=== PATIENT | male | born 1945 | race Caucasian/White ===

== ENCOUNTER 2016-04-29 14:26 | Observation (INO) | payer MEDICARE, OTHER ==
--- NOTE | 2016-04-29 14:43 | ED ---
General Adult HPI - General Stated complaint: Defib went off Time Seen by Provider: 04/29/16 14:34 Source: patient, EMS, RN notes reviewed, old records reviewed - History of Present Illness Initial comments: Chief complaint and history of present illness is a 70-year-old male who has an indwelling cardiac defibrillator. The patient reports it started having jaw pain which signals to him he is having a heart attack and his defibrillator may go off. He reports it's gone off half a dozen times over the years since he's had the AICD. He reports it did go off he felt quite a kick. And the jaw pain stops. Pain did not radiate across the chest or down the arms. Patient was brought from the clinic to the emergency room via EMS. - Related Data Home Medications Medication Instructions Recorded Confirmed Furosemide [Lasix] 40 mg PO DAILY 08/13/13 04/29/16 Mexiletine HCl 250 mg PO TID 08/13/13 04/29/16 Potassium Chloride [Klor-Con 20] 20 meq PO DAILY 08/13/13 04/29/16 clonazePAM [KlonoPIN] 0.5 mg PO BID 08/13/13 04/29/16 traZODone HCL 50 mg PO HS 08/13/13 04/29/16 Famotidine [Pepcid] 20 mg PO DAILY 08/14/13 04/29/16 Venlafaxine HCl [Effexor XR] 75 mg PO DAILY 08/14/13 04/29/16 ALPRAZolam [Xanax] 0.25 mg PO BID PRN 01/22/15 04/29/16 Aspirin EC [Ecotrin Low Dose] 81 mg PO DAILY 01/22/15 04/29/16 Clopidogrel [Plavix] 75 mg PO DAILY 01/22/15 04/29/16 Docusate [Colace] 100 mg PO DAILY PRN 01/22/15 04/29/16 [place]-3 Fatty Acids/Fish Oil [Fish 2 cap PO BID 01/22/15 04/29/16 Oil 1,000 mg Softgel] Vitamin B Complex 1 tab PO DAILY 01/22/15 04/29/16 Androgel 20.25 Mg/1.25gm 4 pump TOPICAL DAILY 01/23/15 04/29/16 Calcium Carbonate [Calcium] 600 mg PO DAILY 01/23/15 04/29/16 Fluvastatin Sodium 20 mg PO HS 01/23/15 04/29/16 Metoprolol Tartrate [Lopressor] 50 mg PO TID 01/23/15 04/29/16 Amiodarone [Cordarone] 200 mg PO DAILY 05/03/15 04/29/16 Nitroglycerin Sl Tabs [Nitrostat] 0.4 mg SUBLINGUAL Q5M PRN 04/29/16 04/29/16 Allergies Allergy/AdvReac Type Severity Reaction Status Date / Time chlorhexidine gluconate Allergy Rash/Hives Verified 04/29/16 15:04 [From Hibiclens] codeine Allergy Rash/Hives Verified 04/29/16 15:04 ciprofloxacin [From Cipro] AdvReac Nausea & Verified 04/29/16 15:04 Vomiting chloraprep Allergy Rash/Hives Uncoded 01/22/15 17:19 Review of Systems ROS Statement: Those systems with pertinent positive or pertinent negative responses have been documented in the HPI. Review of systems. At this time patient's denying any headache or visual acuity changes no jaw pain no chest pain or shortness of breath this time though he is on O2 2 L day and day out. No chest pain or shortness of breath this time no GI/ problems no complaints of any neuro deficits. All systems were otherwise reviewed. Past medical problems significant for patient different later, O2 dependent. 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 COPD. The patient's surgeries include patient's defibrillator , C-spine, lumbar spine, bilateral knee replacements, 3 or 4 hernia repairs. And 5 stents he thinks on 5 different occasions. The patient's family history no cancer. Patient has ALLERGIES to codeine in chlorhexedine. Quit smoking 3 years ago quit alcohol 30 years ago ROS Other: All systems not noted in ROS Statement are negative. Past Medical History Past Medical History: Coronary Artery Disease (CAD), Chest Pain / Angina, COPD, Deep Vein Thrombosis (DVT), Hypertension, Osteoarthritis (OA), Pneumonia, Supraventricular Tachycardia (SVT) Additional Past Medical History / Comment(s): CT. stents x 4, home oxygen as needed History of Any Multi-Drug Resistant Organisms: MRSA Date of last positivie culture/infection: 2009 MDRO Source:: pain pump in spine got infected Past Surgical History: Appendectomy, Back Surgery, Heart Catheterization With Stent, Hernia Repair Additional Past Surgical History / Comment(s): stent-coronary, pacemaker- defibrillator 1998, pain pump with dilaudid, morphine and biviocaine, knee right Past Anesthesia/Blood Transfusion Reactions: No Reported Reaction Date of Last Stent Placement:: 2011 Past Psychological History: Anxiety, Depression Smoking Status: Former smoker Past Alcohol Use History: None Reported Past Drug Use History: None Reported - Past Family History Father Family Medical History: Unable to Obtain Additional Family Medical History / Comment(s): dies due to mva Mother Family Medical History: CVA/TIA, Myocardial Infarction (CT) Additional Family Medical History / Comment(s): at age 59 General Exam - General Exam Comments Initial Comments: General: The patient is awake and alert, in no distress, and does not appear acutely ill. Here because his ICD went off approximately half hour ago. This was preceded by jaw pain. Vital signs show temperature 97.8 pulse 70, respiratory rate 24 pulse ox 94% on 2 L blood pressure 123/77 Eye: Pupils are equal, round and reactive to light, extra-ocular movements are intact ; there is normal conjunctiva bilaterally. No signs of icterus. Ears, nose, mouth and throat: There are moist mucous membranes and no oral lesions. Neck: The neck is supple, there is no tenderness , evidence of previous neck surgery Cardiovascular: There is a regular rate and rhythm. No murmur, rub or gallop is appreciated. Respiratory: Lungs are clear to auscultation, respirations are non-labored, breath sounds are equal. No wheezes, stridor, rales, or rhonchi. History COPD on oxygen 24/ 7 Gastrointestinal: Soft, non-distended, non-tender abdomen without masses or organomegaly noted. There is no rebound or guarding present. No CVA tenderness. Bowel sounds are unremarkable. Patient is a pain pump right lower quadrant. Chronic back pain Back: There is no tenderness to palpation in the midline. There is no obvious deformity. No rashes noted. Chronic back pain Musculoskeletal: Normal ROM, no tenderness, There is no pedal edema. There is no calf tenderness or swelling. Sensation intact. Pulses equal bilaterally 2+. Neurological: No neuro deficits. Denies any previous strokes. Slight droopiness to the left side of his mouth. No difficulty thinking or explaining or talking. Skin: Skin is warm and dry and no rashes or lesions are noted. Psychiatric: No complaint of any depression or anxiety. Course Vital Signs 04/29/16 04/29/16 04/29/16 14:40 15:53 16:25 Temperature 97.8 F 97.4 F L Pulse Rate 70 59 L 56 L Respiratory 18 18 16 Rate Blood Pressure 123/77 100/58 95/53 O2 Sat by Pulse 96 94 L 96 Oximetry EKG Findings - EKG Comments: EKG Findings:: EKG was done and reviewed at 1437 showing sinus rhythm with first-degree AV block. No acute ST elevation no ectopy age undetermined inferior injury. Rate 71 [place] interval was 216 QRS [address] Ford Medical Decision Making - Medical Decision Making Patient's case was discussed with Dr. Villarreal, on-call motion picture projectionist. He recommends increasing amiodarone 200 mg twice a day. Labs show white count 7.2 hemoglobin 11 hematocrit 35, potassium 4.6, BUN 18 creatinine 1.1 GFR greater than 60. Glucose 91. CK 38 and MB fraction 2, troponin less than 0.012. Patient was seen in emergency room by Dr. Villarreal, on-call motion picture projectionist. Patient will be admitted to the service of Dr. Puga - Lab Data Result diagrams: 04/29/16 14:55 04/29/16 14:55 Lab Results 04/29/16 04/29/16 04/29/16 Range/Units 14:55 14:55 14:55 WBC 7.2 (3.8-10.6) k/uL RBC 3.76 L (4.30-5.90) m/uL Hgb 11.4 L (13.0-17.5) gm/dL Hct 35.6 L (39.0-53.0) % MCV 94.6 (80.0-100.0) fL MCH 30.3 (25.0-35.0) pg MCHC 32.0 (31.0-37.0) g/dL RDW 13.3 (11.5-15.5) % Plt Count 276 (150-450) k/uL Neutrophils % 78 % Lymphocytes % 11 % Monocytes % 5 % Eosinophils % 4 % Basophils % 0 % Neutrophils # 5.6 (1.3-7.7) k/uL Lymphocytes # 0.8 L (1.0-4.8) k/uL Monocytes # 0.3 (0-1.0) k/uL Eosinophils # 0.3 (0-0.7) k/uL Basophils # 0.0 (0-0.2) k/uL PT (9.0-12.0) sec INR (<1.1) APTT (22.0-30.0) sec Sodium 144 (137-145) mmol/L Potassium 4.6 (3.5-5.1) mmol/L Chloride 104 (98-107) mmol/L Carbon Dioxide 30 (22-30) mmol/L Anion Gap 10 mmol/L BUN 18 (9-20) mg/dL Creatinine 1.10 (0.66-1.25) mg/dL Est GFR (MDRD) Af Amer >60 (>60 ml/min/1.73 sqM) Est GFR (MDRD) Non-Af >60 (>60 ml/min/1.73 sqM) Glucose 91 (74-99) mg/dL Calcium 9.0 (8.4-10.2) mg/dL Magnesium 1.8 (1.6-2.3) mg/dL Total Bilirubin 0.3 (0.2-1.3) mg/dL AST 19 (17-59) U/L ALT 23 (21-72) U/L Alkaline Phosphatase 62 (38-126) U/L Total Creatine Kinase 38 L (55-170) U/L CK-MB (CK-2) 1.0 (0.0-2.4) ng/mL CK-MB (CK-2) Rel Index 2.6 Troponin I <0.012 (0.000-0.034) ng/mL Total Protein 6.7 (6.3-8.2) g/dL Albumin 3.6 (3.5-5.0) g/dL 04/29/16 Range/Units 14:55 WBC (3.8-10.6) k/uL RBC (4.30-5.90) m/uL Hgb (13.0-17.5) gm/dL Hct (39.0-53.0) % MCV (80.0-100.0) fL MCH (25.0-35.0) pg MCHC (31.0-37.0) g/dL RDW (11.5-15.5) % Plt Count (150-450) k/uL Neutrophils % % Lymphocytes % % Monocytes % % Eosinophils % % Basophils % % Neutrophils # (1.3-7.7) k/uL Lymphocytes # (1.0-4.8) k/uL Monocytes # (0-1.0) k/uL Eosinophils # (0-0.7) k/uL Basophils # (0-0.2) k/uL PT 10.8 (9.0-12.0) sec INR 1.1 (<1.1) APTT 23.5 (22.0-30.0) sec Sodium (137-145) mmol/L Potassium (3.5-5.1) mmol/L Chloride (98-107) mmol/L Carbon Dioxide (22-30) mmol/L Anion Gap mmol/L BUN (9-20) mg/dL Creatinine (0.66-1.25) mg/dL Est GFR (MDRD) Af Amer (>60 ml/min/1.73 sqM) Est GFR (MDRD) Non-Af (>60 ml/min/1.73 sqM) Glucose (74-99) mg/dL Calcium (8.4-10.2) mg/dL Magnesium (1.6-2.3) mg/dL Total Bilirubin (0.2-1.3) mg/dL AST (17-59) U/L ALT (21-72) U/L Alkaline Phosphatase (38-126) U/L Total Creatine Kinase (55-170) U/L CK-MB (CK-2) (0.0-2.4) ng/mL CK-MB (CK-2) Rel Index Troponin I (0.000-0.034) ng/mL Total Protein (6.3-8.2) g/dL Albumin (3.5-5.0) g/dL Disposition Clinical Impression: ICD (implantable cardioverter-defibrillator) discharge Disposition: ADMITTED IP TO THIS HOSP Condition: Fair
[2016-04-29 15:15] LABS: Basophils % (A) 0 %; CH 29.7; CHCM 31.5; Eosinophils # (A) 0.3 k/uL (0-0.7); Eosinophils % (A) 4 %; HCT 35.6 % (39.0-53.0); HDW 2.27; HGB 11.4 gm/dL (13.0-17.5); Luc # (Auto) 0.15; Luc % (Auto) 2; Lymphocytes # (A) 0.8 k/uL (1.0-4.8); Lymphocytes % (A) 11 %; MCH 30.3 pg (25.0-35.0); MCV 94.6 fL (80.0-100.0); Mean Platelet Volume 7.1; Monocytes # (A) 0.3 k/uL (0-1.0); Monocytes % (A) 5 %; Neutrophils # (A) 5.6 k/uL (1.3-7.7); Neutrophils % (A) 78 %; RBC 3.76 m/uL (4.30-5.90); RDW 13.3 % (11.5-15.5); WBC 7.2 k/uL (3.8-10.6); WBC (Perox) 7.72
[2016-04-29 15:18] LABS: ALT 23 U/L (21-72); AST 19 U/L (17-59); Alkaline Phosphatase 62 U/L (38-126); Anion Gap 10 mmol/L; Blood Urea Nitrogen 18 mg/dL (9-20); Carbon Dioxide 30 mmol/L (22-30); Chloride 104 mmol/L (98-107); Glucose 91 mg/dL (74-99); Magnesium 1.8 mg/dL (1.6-2.3); Non-African American GFR(MDRD) >60 (>60 ml/min/1.73 sqM); Potassium 4.6 mmol/L (3.5-5.1); Sodium 144 mmol/L (137-145); Total Bilirubin 0.3 mg/dL (0.2-1.3); Total Protein 6.7 g/dL (6.3-8.2)
[2016-04-29 15:28] LABS: Creatine Kinase 38 U/L (55-170)
[2016-04-29] MEDS ORDERED: AMIODARONE 200 MG TAB PO STA (15:30)
[2016-04-29 15:37] LABS: INR 1.1 (<1.1); Partial Thromboplastin Time 23.5 sec (22.0-30.0); Prothrombin Time 10.8 sec (9.0-12.0)
[2016-04-29 15:41] LABS: Troponin I <0.012 ng/mL (0.000-0.034)
--- NOTE | 2016-04-29 15:43 | XR ---
EXAMINATION TYPE: XR chest 2V DATE OF EXAM: 04/29/2016 3:35 PM COMPARISON: 05/03/2015 TECHNIQUE: PA and lateral views submitted. HISTORY: Chest pain FINDINGS: Cardiac device seen. The heart is enlarged. Hyperinflation suggests COPD. No pneumothorax. Arthropathy of the shoulders and evidence of suggestive trauma involving the left clavicle. Postsurgi yobany change overlying the cervical spine. Interstitial prominence likely related to interstitial pulmo nary fibrosis. Degenerative change of the spine. IMPRESSION: 1. Correlate for pulmonary fibrosis mild superimposed pneumonitis or congestion in the differential.
[2016-04-29] MEDS ORDERED: MEXILETINE 200 MG CAP PO STA (16:03)
--- NOTE | 2016-04-29 16:50 | CONS ---
DATE OF CONSULTATION: This patient is a 70-year-old gentleman who presented to [facility] Emergency Room having had an episode of AICD discharge in his primary care physician's office. He has known ventricular tachycardia, on amiodarone and mexiletine, and had a shock at Dr. Lau's office. He denies chest pain, difficulty in breathing, palpitations, dizziness or syncope. AICD had been evaluated. Patient has had 13 episodes of ventricular tachycardia this afternoon, and almost all the episodes were treated with antitachycardia pacing except one, for which he received a shock. At the time of my evaluation, patient appears comfortable at rest and is in a stable rhythm. Since coming to the emergency room he has not had any further episodes of ventricular tachycardia. Patient states that he has had multiple prior myocardial infarctions and underwent angioplasties, has ischemic cardiomyopathy with significant LV dysfunction. He follows with a reel film inspector at [facility]; I do not have any of his old records with me. Past medical history is significant for: 1. Ischemic cardiomyopathy. 2. Ventricular tachycardia, status post AICD. ALLERGIES: CHARTED. FAMILY HISTORY: Negative for premature coronary artery disease. SOCIAL HISTORY: Negative for smoking, EtOH abuse or drug abuse. REVIEW OF SYSTEMS: HEENT: Unremarkable. CARDIAC: As described above. RESPIRATORY: As described above. GI: Negative. GENITOURINARY: Negative. ALLERGY/IMMUNOLOGY: Negative. MUSCULOSKELETAL: Negative. DERMATOLOGY: Negative. CONSTITUTIONAL: Negative. Rest of the system review is not relevant. Patient is currently: 1. Crestor. 2. Klonopin. 3. Effexor. 4. ( ) 5. Lopressor 50 t.i.d. 6. Mexiletine 250 t.i.d. 7. Lasix 40 daily. 8. Pepcid. 9. Plavix. 10. Cordarone 200 mg daily. 11. Xanax. On exam, comfortable at rest. Vital signs are stable. There is no jugular venous distention. Chest is clear to auscultation and percussion. Heart exam shows first and second heart sounds. No gallop. ABDOMEN: Soft. Examination of extremities did not reveal edema. Peripheral pulses are felt. Labs have been reviewed. Potassium is normal. Magnesium is normal. ASSESSMENT: 1. Ventricular tachycardia, status post defibrillation. 2. Ischemic cardiomyopathy, status post automatic implantable cardioverter defibrillator. 3. Coronary artery disease, status post multi-vessel angioplasty. PLAN: Will admit the patient, run cardiac enzymes to rule out myocardial infarction, increase the dose of amiodarone to 200 b.i.d., continue the mexiletine. Patient's tells me that patient recently had an abdominal surgery and missed his mexiletine doses for a while. I am not quite sure if this is the reason he had the VT episodes. Patient does not want to have any procedures done here at this hospital and would wish to follow with his own reel film inspector. I will see how he is tomorrow. I might ask an electronic operator to see the patient to see if we can adjust his antiarrhythmic therapy.
[2016-04-29] MEDS ORDERED: NALOXONE 0.4 MG/ML 1 ML VIAL IV PRN (17:28)
[2016-04-29] MEDS ORDERED: ACETAMINOPHEN TAB 325 MG TAB PO PRN (17:28)
[2016-04-29] MEDS ORDERED: ALPRAZolam 0.25 MG TAB PO PRN (17:34)
[2016-04-29] MEDS: SODIUM CHLORIDE 0.9% 1,000 ML IV SCH (18:19)
[2016-04-29] MEDS ORDERED: traZODone HCL 50 MG TAB PO SCH (21:00)
[2016-04-29] MEDS ORDERED: ATORVASTATIN 10 MG TAB PO SCH (21:00)
[2016-04-29] MEDS: clonazePAM 0.5 MG TAB PO SCH (21:59)
[2016-04-29] MEDS: METOPROLOL TARTRATE 50 MG TAB PO SCH (21:59)
[2016-04-29] MEDS ORDERED: MEXILETINE 150 MG CAP PO SCH (22:00)
[2016-04-29 22:12] LABS: Creatine Kinase MB 1.3 ng/mL (0.0-2.4); Troponin I 0.019 ng/mL (0.000-0.034)
[2016-04-30 04:34] LABS: Creatine Kinase MB 1.3 ng/mL (0.0-2.4); Troponin I 0.014 ng/mL (0.000-0.034)
[2016-04-30 06:32] LABS: Creatine Kinase MB 1.1 ng/mL (0.0-2.4); Troponin I 0.013 ng/mL (0.000-0.034)
[2016-04-30] MEDS: METOPROLOL TARTRATE 50 MG TAB PO SCH (08:18)
[2016-04-30] MEDS: SODIUM CHLORIDE 0.9% 1,000 ML IV SCH (08:18)
[2016-04-30] MEDS: clonazePAM 0.5 MG TAB PO SCH (08:23)
[2016-04-30 08:42] VITALS: BP 111/55; PULSE 54; RESP 18; TEMP 97.5
[2016-04-30] MEDS ORDERED: CALCIUM CARBONATE 500 MG CHEWABLE PO SCH (09:00)
[2016-04-30] MEDS ORDERED: POTASSIUM CHLORIDE ER 20 MEQ TAB.ER PO SCH (09:00)
[2016-04-30] MEDS ORDERED: CLOPIDOGREL 75 MG TAB PO SCH (09:00)
[2016-04-30] MEDS ORDERED: AMIODARONE 200 MG TAB PO SCH ×2 (09:00)
[2016-04-30] MEDS ORDERED: ASPIRIN 81 MG CHEW PO SCH (09:00)
[2016-04-30] MEDS ORDERED: FAMOTIDINE 20 MG TAB PO SCH (09:00)
[2016-04-30] MEDS ORDERED: FUROSEMIDE 40 MG TAB PO SCH (09:00)
--- NOTE | 2016-04-30 09:07 | CONS ---
ADDENDUM: DATE OF CONSULTATION: I talked to patient and his about undergoing invasive angiography yesterday in the ER but they did not wish to have anything done here. Would want to pursue that work-up through [facility]. I will check a TSH on him.
[2016-04-30] MEDS ORDERED: VENLAFAXINE HCL ER 75 MG CAP PO SCH (10:30)
[2016-04-30 10:46] VITALS: BMI 25.4
--- NOTE | 2016-04-30 11:03 | HP ---
DATE OF ADMISSION: 04/29/2016 PRESENTING COMPLAINT: AICD firing. HISTORY OF PRESENTING COMPLAINT: This is a pleasant 70-year-old patient of Dr. Gabriel Lau. Chronic stable medical conditions include coronary artery disease, patient has got a chronic pain pump, osteoarthritis, COPD, anxiety, depression, hypertension. The patient had yesterday gone to his family doctor to get his pain pump replaced. Sitting in the waiting room when his AICD went off. Patient is sore following that. There was no dizziness, no lightheadedness, no palpitation. Patient decided to come in for the same and he was brought in for the same. 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 Dr. Dahl. REVIEW OF SYSTEMS: CONSTITUTIONAL: Tired. HEENT: None. RESPIRATORY: Chronic cough and sputum. CARDIOVASCULAR: As above. GASTROINTESTINAL: None. GENITOURINARY: None. MUSCULOSKELETAL: Chronic low back pain. DERMATOLOGICAL: None. HEMATOLOGICAL: None. LYMPHATIC: None. PSYCHIATRY: None. NEUROLOGICAL: None. PAST MEDICAL HISTORY: AICD, coronary artery disease, chronic pain pump, lumbar osteoarthritis, COPD, anxiety, depression, hypertension. PAST SURGICAL HISTORY: Appendectomy, back surgery, cardiac cath with 4 stents, AICD in 1998, pain with Dilaudid, morphine and ( ). SOCIAL HISTORY: . The patient smoked close to 50 years; stopped a few years ago. Alcohol occasionally. FAMILY HISTORY: Noncontributory to the presentation. HOME MEDICATIONS: 1. Nitrostat 0.4 sublingual q.5 p.r.n. 2. Fluvastatin 20 mg q.h.s. 3. Colace 100 mg p.o. daily p.r.n. 4. AndroGel 4 pump topical daily. 5. Trazodone 50 mg p.o. q.h.s. 6. Klonopin 0.5 mg p.o. b.i.d. 7. Vitamin B complex 1 tablet p.o. daily. 8. Effexor XR 75 mg p.o. daily. 9. Klor-Con 20 mEq p.o. daily. 10. Fish oil 2 capsules p.o. b.i.d. 11. Mexiletine 250 mg p.o. t.i.d. 12. Lopressor 50 mg p.o. t.i.d. 13. Lasix 40 mg p.o. daily. 14. Pepcid 20 mg p.o. daily. 15. Plavix 75 mg p.o. daily. 16. Calcium 600 mg p.o. daily. 17. Aspirin 81 p.o. daily. 18. Cordarone 200 mg p.o. daily. 19. Xanax 0.25 p.o. b.i.d. p.r.n. Allergies to CHLORHEXIDINE, CODEINE, CIPRO. ON EXAMINATION: VITAL SIGNS ON PRESENTATION: Temperature 97.8, pulse 70, respiration 18, blood pressure 120/77, pulse ox 96% on 2 L. GENERAL APPEARANCE: Average build, lying in bed, not in distress. EYES: Pupils equal. Conjunctivae normal. HEENT: External appearance of nose and ears normal. Oral cavity normal. NECK: JVD not raised. Mass not palpable. RESPIRATORY: Effort normal. LUNGS: Diminished breath sounds. CARDIOVASCULAR: First and second sounds normal. No edema. ABDOMEN: Soft, nontender. Liver and spleen not palpable. Pain pump noted subcutaneously. LYMPHATIC: No lymph node palpable in the neck or axillae. PSYCHIATRY: Alert and oriented x3. Mood and affect normal. NEUROLOGICAL: Pupils equal. Cranial nerves grossly intact. Power and sensation grossly intact. INVESTIGATIONS: White count 7.2, hemoglobin 11.4. Potassium 4.6. BUN and creatinine are normal. Troponin less than 0.012, 0.019. EKG: Sinus rhythm low voltage. ASSESSMENT: 1. Automatic implantable cardioverter-defibrillator firing x1. 2. Coronary artery disease with prior history of stents. 3. Lumbar spine osteoarthritis. 4. Chronic pain with the pain pump in place. 5. Chronic obstructive pulmonary disease with predominant chronic bronchitis in an ex-smoker. 6. Anxiety, depression, not otherwise specified. 7. Essential hypertension. PLAN: Home medications are resumed. Care was discussed with the patient. Cardiology was consulted. Cardiology did talk to him about cardiac catheterization but they want to further pursue further workup at his own brick siding applicator.
--- NOTE | 2016-04-30 11:44 | ECHOF ---
Referral Reason:[facility] MEASUREMENTS -------- HEIGHT: 152.4 cm WEIGHT: 59.0 kg BP: 100/50 RVIDd: 3.2 cm (< 3.3) IVSd: 1.1 cm (0.6 - 1.1) LVIDd: 6.3 cm (3.9 - 5.3) LVPWd: 1.2 cm (0.6 - 1.1) IVSs: 1.6 cm LVIDs: 5.4 cm LVPWs: 1.4 cm LA Diam: 3.2 cm (2.7 - 3.8) LAESV Index (A-L): 35.33 ml/m Ao Diam: 4.2 cm (2.0 - 3.7) AV Cusp: 2.6 cm (1.5 - 2.6) LA Diam: 3.2 cm (2.7 - 3.8) MV EXCURSION: 9.371 mm (> 18.000) MV EF SLOPE: 31 mm/s (70 - 150) EPSS: 1.3 cm MV E Josue: 0.36 m/s MV DecT: 202 ms MV A Josue: 0.58 m/s MV E/A Ratio: 0.62 AR PHT: 1060 ms RAP: 5.00 mmHg RVSP: 19.65 mmHg FINDINGS -------- Paced rhythm. This was a technically good study. The left ventricle is mildly dilated. There is borderline concentric left ventricular hypertrophy. Overall left ventricular systolic function is moderate-severely impaired with, an EF between 30 - 35 %. Basal lateral LV wall motion is hypokinetic. Basal inferior LV wall motion is hypokinetic. Mid inferior LV wall motion is hypokinetic. The right ventricle is normal in size. LA is moderately dilated 34-39 ml/m2 The right atrium is normal in size. There is mild to moderate aortic valve sclerosis. There is mild aortic regurgitation. The mitral valve leaflets are mildly thickened. Mild mitral annular calcification present. Mild mitral regurgitation is present. Mild tricuspid regurgitation present. Right ventricular systolic pressure is normal at < 35 mmHg. Trace/mild (physiologic) pulmonic regurgitation. The aortic root is mildy dilated. Normal inferior vena cava with normal inspiratory collapse consistent with estimated right atrial pressure of 5 mmHg. There is no pericardial effusion. CONCLUSIONS -------- 1. Paced rhythm. 2. LA is moderately dilated 34-39 ml/m2 3. The right atrium is normal in size. 4. There is mild to moderate aortic valve sclerosis. 5. There is mild aortic regurgitation. 6. The mitral valve leaflets are mildly thickened. 7. Mild mitral annular calcification present. 8. Mild mitral regurgitation is present. 9. Mild tricuspid regurgitation present. 10. Right ventricular systolic pressure is normal at < 35 mmHg. 11. Trace/mild (physiologic) pulmonic regurgitation. 12. This was a technically good study. 13. The aortic root is mildy dilated. 14. There is no pericardial effusion. 15. The left ventricle is mildly dilated. 16. There is borderline concentric left ventricular hypertrophy. 17. Overall left ventricular systolic function is moderate-severely impaired with, an EF between 30 - 35 %. 18. Basal lateral LV wall motion is hypokinetic. 19. Basal inferior LV wall motion is hypokinetic. 20. Mid inferior LV wall motion is hypokinetic. 21. The right ventricle is normal in size. HELMET HAT SWEATBAND PUNCHER: Mary Quesada RDCS
--- NOTE | 2016-04-30 12:51 | PN ---
Ady is a 70-year-old gentleman with history of ischemic cardiomyopathy, status post AICD, and ventricular tachycardia who follows with a family welfare social work professor through [facility], came to hospital yesterday with having had an AICD discharge while he was in primary care physician's office. I evaluated him in the emergency room. The patient had been stable. His device check shows that he has had 13 episodes of VT most of which were terminated with antitachycardia pacing. There is one episode for which he was defibrillated. The patient is on amiodarone 200 mg daily. I am increasing it to 200 t.i.d. He was also continue with the mexiletine that he is currently on. Serum potassium and magnesium are within normal limits. Cardiac enzymes have been negative. On exam today he is comfortable at rest. Vital signs are stable. There is no jugular venous distention. Carotid upstroke is normal. Chest exam reveals good air entry bilaterally. Heart exam reveals first and second heart sounds. No gallop. Abdomen is soft. Exam of the extremities did not reveal any edema. Peripheral pulses are felt. Labs show that the hemoglobin is 11.4. Potassium is 4.6. Creatinine is 1.1. ASSESSMENT: 1. Recurrent episodes of ventricular tachycardia status post defibrillation. 2. Ischemic cardiomyopathy. PLAN: I will obtain a 2-D echo on him, obtain his outpatient records. The patient does not want to have any work-up done here and wishes to go back and follow up with his own insulation technician and family welfare social work professor. Will obtain a 2-D echo today.
--- NOTE | 2016-05-02 09:43 | DS ---
DATE OF ADMISSION: 04/29/2016 DATE OF DISCHARGE: 04/30/2016 FINAL DIAGNOSES: 1. Automatic implantable cardioverter defibrillator firing. 2. Coronary artery disease with prior history of stent. 3. Lumbar spinal osteoarthritis, chronic. 4. Chronic pain pump. 5. Chronic obstructive pulmonary disease with prominent chronic bronchitis in an ex-smoker. 6. Anxiety, depression, not otherwise specified. 7. Essential hypertension. 8. Ischemic cardiomyopathy; ejection fraction 30% to %35 with underlying coronary artery disease. HOSPITAL COURSE: This patient presented with AICD firing, seen by Dr. House who did offer the patient cardiac cath. Patient declined, wants to go back and see his own marine gear keeper. A 2-D echocardiogram showed an EF of 30% to 35% with multiple wall hypokinesis. Patient is symptom-free at the time of discharge. On exam, lungs are clear. CARDIOVASCULAR: First and second sounds are normal. CONSULTATION: Dr. Enrrique Valdez from Cardiology. DISCHARGE MEDICATIONS: 1. Lasix 40 mg a day. 2. Mexiletine 250 mg p.o. t.i.d. 3. Potassium 20 mEq daily. 4. Klonopin 0.5 p.o. b.i.d. 5. Trazodone 50 mg p.o. q.h.s. 6. Pepcid 20 mg daily. 7. Effexor XR 75 mg p.o. daily. 8. Xanax 0.25 p.o. b.i.d. p.r.n. 9. Aspirin 81 mg daily. 10. Plavix 75 mg daily. 11. Colace 100 mg p.o. daily. 12. Fish oil 1000 mg 2 capsules p.o. b.i.d. 13. Vitamin B complex 1 tablet p.o. daily. 14. Androgel topical daily. 15. Calcium 600 mg p.o. daily. 16. Fluvastatin 20 mg p.o. q.h.s. 17. Lopressor 50 mg p.o. t.i.d. 18. Cordarone 200 mg p.o. daily. 19. Nitrostat 0.4 sublingual q.5 p.r.n. Follow up with Dr. Lau in 2 days. Patient to follow with marine gear keeper this week. On exam, lungs slightly decreased breath sounds. CARDIOVASCULAR: First and second sounds are normal.
== END 2016-04-30 11:45 | disposition home or self-care (01) ==
LOC: EC 14:26 → 3OBS 17:33
PROVIDERS: ADMIT Hospitalist; ATTEND Hospitalist
DX: Z45.02 Encounter for adjustment and management of automatic implantable cardiac defibrillator (principal); I25.10 Atherosclerotic heart disease of native coronary artery without angina pectoris; I25.2 Old myocardial infarction; I25.5 Ischemic cardiomyopathy; I47.2 Ventricular tachycardia; J44.9 Chronic obstructive pulmonary disease, unspecified; I10 Essential (primary) hypertension; F32.9 Major depressive disorder, single episode, unspecified; F41.9 Anxiety disorder, unspecified; G89.29 Other chronic pain; M47.816 Spondylosis without myelopathy or radiculopathy, lumbar region; Z79.02 Long term (current) use of antithrombotics/antiplatelets; Z87.891 Personal history of nicotine dependence; Z79.899 Other long term (current) drug therapy; Z79.82 Long term (current) use of aspirin; Z88.5 Allergy status to narcotic agent; Z88.8 Allergy status to other drugs, medicaments and biological substances; Z99.81 Dependence on supplemental oxygen; Z95.5 Presence of coronary angioplasty implant and graft; Z86.718 Personal history of other venous thrombosis and embolism; I47.1 Supraventricular tachycardia
CPT/HCPCS: 36415; 93005; 93306; 80053; 82550 ×2; 82553 ×2; 83735; 84443; 84484 ×2; 85025; 85610; 85730; 71020; 99285; G0378 ×2

== ENCOUNTER 2016-06-15 01:12 | Emergency (ER) | payer MEDICARE ==
[2016-06-15] MEDS ORDERED: HYDROmorphone 1 MG/ML 1 ML SYRINGE IVP STA ×2 (01:34→02:03)
[2016-06-15] MEDS ORDERED: METHADONE 10 MG TAB PO STA (02:03)
--- NOTE | 2016-06-15 03:29 | ED ---
General Adult HPI - General Chief complaint: Shortness of Breath Stated complaint: withdrawals Time Seen by Provider: 06/15/16 01:25 Source: patient Mode of arrival: ambulatory Limitations: no limitations - History of Present Illness Initial comments: This patient is a 70-year-old man who presents with complaint that he has had increase of his chronic pain and also severe anxiety, feeling hot and cold, nausea. He states that he had a pain pump implanted recently and they're concerned that it may be out medicine. Patient is concerned that he is withdrawing. -: days(s) Radiation: back Severity scale (1-10): 10 Quality: aching Consistency: constant Improves with: none Worsens with: none Associated Symptoms: nausea/vomiting Treatments Prior to Arrival: none - Related Data Home Medications Medication Instructions Recorded Confirmed Furosemide [Lasix] 40 mg PO DAILY 08/13/13 04/29/16 Mexiletine HCl 250 mg PO TID 08/13/13 04/29/16 Potassium Chloride [Klor-Con 20] 20 meq PO DAILY 08/13/13 04/29/16 clonazePAM [KlonoPIN] 0.5 mg PO BID 08/13/13 04/29/16 traZODone HCL 50 mg PO HS 08/13/13 04/29/16 Famotidine [Pepcid] 20 mg PO DAILY 08/14/13 04/29/16 Venlafaxine HCl [Effexor XR] 75 mg PO DAILY 08/14/13 04/29/16 ALPRAZolam [Xanax] 0.25 mg PO BID PRN 01/22/15 04/29/16 Aspirin EC [Ecotrin Low Dose] 81 mg PO DAILY 01/22/15 04/29/16 Clopidogrel [Plavix] 75 mg PO DAILY 01/22/15 04/29/16 Docusate [Colace] 100 mg PO DAILY PRN 01/22/15 04/29/16 [place]-3 Fatty Acids/Fish Oil [Fish 2 cap PO BID 01/22/15 04/29/16 Oil 1,000 mg Softgel] Vitamin B Complex 1 tab PO DAILY 01/22/15 04/29/16 Androgel 20.25 Mg/1.25gm 4 pump TOPICAL DAILY 01/23/15 04/29/16 Calcium Carbonate [Calcium] 600 mg PO DAILY 01/23/15 04/29/16 Fluvastatin Sodium 20 mg PO HS 01/23/15 04/29/16 Metoprolol Tartrate [Lopressor] 50 mg PO TID 01/23/15 04/29/16 Amiodarone [Cordarone] 200 mg PO DAILY 05/03/15 04/29/16 Nitroglycerin Sl Tabs [Nitrostat] 0.4 mg SUBLINGUAL Q5M PRN 04/29/16 04/29/16 Previous Rx's Medication Instructions Recorded HYDROcodone/APAP 7.5-325MG [[place] 1 tab PO Q4H PRN #24 tab 06/15/16 7.5-325] Allergies Allergy/AdvReac Type Severity Reaction Status Date / Time chlorhexidine gluconate Allergy Rash/Hives Verified 04/29/16 15:04 [From Hibiclens] codeine Allergy Rash/Hives Verified 04/29/16 15:04 ciprofloxacin [From Cipro] AdvReac Nausea & Verified 04/29/16 15:04 Vomiting chloraprep Allergy Rash/Hives Uncoded 01/22/15 17:19 Review of Systems ROS Statement: Those systems with pertinent positive or pertinent negative responses have been documented in the HPI. ROS Other: All systems not noted in ROS Statement are negative. Constitutional: Reports: chills. Denies: fever Respiratory: Denies: cough, dyspnea Cardiovascular: Denies: chest pain, palpitations, syncope Gastrointestinal: Reports: abdominal pain, nausea. Denies: vomiting, diarrhea Musculoskeletal: Reports: back pain Skin: Denies: rash Neurological: Denies: headache, weakness, numbness Psychiatric: Reports: anxiety Past Medical History Past Medical History: Coronary Artery Disease (CAD), Chest Pain / Angina, COPD, Deep Vein Thrombosis (DVT), Hypertension, Osteoarthritis (OA), Pneumonia, Supraventricular Tachycardia (SVT) Additional Past Medical History / Comment(s): [place]. stents x 4, home oxygen as needed History of Any Multi-Drug Resistant Organisms: MRSA Date of last positivie culture/infection: 2009 MDRO Source:: pain pump in spine got infected Past Surgical History: Appendectomy, Back Surgery, Heart Catheterization With Stent, Hernia Repair Additional Past Surgical History / Comment(s): stent-coronary, pacemaker- defibrillator 1998, pain pump with dilaudid, morphine and biviocaine, knee right Past Anesthesia/Blood Transfusion Reactions: No Reported Reaction Date of Last Stent Placement:: 2011 Past Psychological History: Anxiety, Depression Smoking Status: Former smoker Past Alcohol Use History: None Reported Past Drug Use History: None Reported - Past Family History Father Family Medical History: Unable to Obtain Additional Family Medical History / Comment(s): dies due to mva Mother Family Medical History: CVA/TIA, Myocardial Infarction ([place]) Additional Family Medical History / Comment(s): at age 59 General Exam Limitations: no limitations General appearance: alert, anxious, cachectic Head exam: Present: atraumatic, normocephalic Eye exam: Present: normal appearance Neck exam: Present: normal inspection Respiratory exam: Present: normal lung sounds bilaterally. Absent: respiratory distress, wheezes, rales, rhonchi Cardiovascular Exam: Present: regular rate, normal rhythm, normal heart sounds. Absent: systolic murmur, diastolic murmur, rubs, gallop GI/Abdominal exam: Present: soft. Absent: distended, tenderness, guarding, rebound Extremities exam: Present: normal inspection, normal capillary refill. Absent: pedal edema, calf tenderness Neurological exam: Present: alert Psychiatric exam: Present: anxious Skin exam: Present: warm, dry, intact, normal color. Absent: rash Course Vital Signs 06/15/16 06/15/16 01:19 04:00 Pulse Rate 74 55 L Respiratory 22 16 Rate Blood Pressure 137/109 103/77 O2 Sat by Pulse 95 97 Oximetry Medical Decision Making - Medical Decision Making The patient did have relief of his symptoms with narcotic analgesic. Patient will be given prescription for oral analgesic and to follow-up to have his pain pump refilled. Return parameters discussed. Disposition Clinical Impression: Opioid withdrawal Disposition: HOME SELF-CARE Condition: Fair Instructions: Opioid Withdrawal (ED) Prescriptions: HYDROcodone/APAP 7.5-325MG [[place] 7.5-325] 1 tab PO Q4H PRN #24 tab PRN Reason: Pain Referrals: Gabriel Lau MD [Primary Care Provider] - 1-2 days
[2016-06-15 04:02] VITALS: BP 103/77; PULSE 55; RESP 16
== END 2016-06-15 04:00 | disposition home or self-care (01) ==
LOC: EC 01:12
DX: F11.23 Opioid dependence with withdrawal (principal); I25.10 Atherosclerotic heart disease of native coronary artery without angina pectoris; I10 Essential (primary) hypertension; I25.2 Old myocardial infarction; M19.90 Unspecified osteoarthritis, unspecified site; F32.9 Major depressive disorder, single episode, unspecified; F41.9 Anxiety disorder, unspecified; Z86.718 Personal history of other venous thrombosis and embolism; Z95.810 Presence of automatic (implantable) cardiac defibrillator; Z88.1 Allergy status to other antibiotic agents; Z88.5 Allergy status to narcotic agent; Z88.8 Allergy status to other drugs, medicaments and biological substances; Z79.02 Long term (current) use of antithrombotics/antiplatelets; Z79.82 Long term (current) use of aspirin; Z79.899 Other long term (current) drug therapy; Z87.891 Personal history of nicotine dependence
CPT/HCPCS: 96376 ×2; 96374 ×2; 99284 ×2; S0109; J1170

== ENCOUNTER → 2016-12-13 | Outpatient (CLI) | payer MEDICARE ==
[2016-12-13 15:09] LABS: Anion Gap 12 mmol/L; Blood Urea Nitrogen 21 mg/dL (9-20); Calcium 9.6 mg/dL (8.4-10.2); Carbon Dioxide 27 mmol/L (22-30); Chloride 103 mmol/L (98-107); Glucose 98 mg/dL (74-99); Magnesium 1.7 mg/dL (1.6-2.3); Non-African American GFR(MDRD) 51 (>60 ml/min/1.73 sqM); Potassium 4.5 mmol/L (3.5-5.1); Sodium 142 mmol/L (137-145)
== END | disposition home or self-care (01) ==
LOC: LABWHC1 14:34
PROVIDERS: ATTEND Internal Medicine Cardiovascular Disease
DX: I47.1 Supraventricular tachycardia (principal); R00.2 Palpitations; I43 Cardiomyopathy in diseases classified elsewhere
CPT/HCPCS: 36415; 80048; 83735